=== PATIENT | male | born 1965 | race Caucasian/White ===

== ENCOUNTER 2021-05-24 11:59 | Outpatient (CLI) | payer MEDICARE, OTHER, SELFPAY ==
--- NOTE | 2021-05-24 | ECG_ITS ---
Measurements Intervals [place] Rate: 83 P: 60 MS: 149 QRS: 24 QRSD: 102 T: 55 QT: 377 QTc: 444 Interpretive Statements SINUS RHYTHM POSSIBLE LEFT ATRIAL ENLARGEMENT DELAYED PRECORDIAL R/S TRANSITION BASELINE ARTIFACT- I, II, AVR, AVL, AVF BORDERLINE ECG Electronically Signed On 05-24-2021 13:24:00 CDT by Nickolas Levy D.O.
[2021-05-24 12:53] LABS: Anion Gap 10 mmol/L (8-16); Blood Urea Nitrogen 25 mg/dL (9-20); Calcium 10.5 mg/dL (8.4-10.2); Carbon Dioxide 26 mmol/L (22-30); Chloride 102 mmol/L (98-107); Estimated Glomerular Filt Rate > 60; Glucose 75 mg/dL (65-110); Potassium 4.3 mmol/L (3.4-5.0); Sodium 138 mmol/L (137-145)
== END 2021-05-24 12:00 | disposition home or self-care (01) ==
DX: Z01.818 Encounter for other preprocedural examination (principal); I10 Essential (primary) hypertension
CPT/HCPCS: 36415; 80048; 93005

== ENCOUNTER 2022-12-18 08:08 | Outpatient (CLI) | payer MEDICARE, OTHER, SELFPAY ==
--- NOTE | 2023-01-14 10:50 | WPDSLEEPSTUD ---
Sleep Study Date of Study: 12/18/22 Ordering Provider: Kendal Villafana MD Interpreting Physician: Kendal Villafana MD Sleep Study Type: Split Polysomnogram Height: 1.88 m Weight: 113 kg Body Mass Index: 31.9 Neck Circumference (inches): 18 [place]: 8 Reason for Sleep Study Snoring, witnessed apneas. Sleep History Bay Olivier III is a 57-year-old male with history of multiple back surgeries with paraplegia who presents for a sleep study due to witnessed apneas and snoring. Patient states he was told by his surgeon that he has snoring during surgery. He never awakens from sleep short of breath. He frequently snores and snores loudly enough that others complain. He rarely has trouble sleeping when he has a cold. He does not suddenly wake up gasping for breath during the night. He does not have breathing problems at night. He rarely sweats excessively at night. He rarely falls asleep during the day. He does not fall asleep involuntarily and never falls asleep while driving. He does not experience loss of muscle tone with strong emotion. He never feels paralyzed on waking or falling asleep. He occasionally experiences vivid dreams upon waking or falling asleep. He does not feel afraid of going to sleep. He does not have nightmares. He occasionally recalls his dreams. He never has thoughts racing through his mind. He does not feel sad or depressed. He does not feel anxiety or worry about things. He occasionally notices parts of his body jerk or spasm. He rarely kicks during the night. He does not feel crawling or aching feelings in his legs. He occasionally feels leg pain at night. He occasionally grinds his teeth during sleep, wears a mouth guard and occasionally has morning jaw pain. He frequently feels bothered by pain during the day and is occasionally awakened by pain during the night. He frequently wakes up feeling stiff, sore and achy in the morning with pain in his neck, spine, or joints. Normal bedtime is around 11pm on the weekdays and same on the weekends, usually falling asleep in about 10 minutes although occasionally longer. He typically gets about 7.5 to 8.5 hours of sleep per night. His wake up time is around 7-7:30am on the weekdays and 7-8am on the weekends. He typically wakes up around 1 to 2 times per night and can be awake for 10 minutes during the first awakening, and if he wakes up twice then the second awakening tends to be longer. He reads or watches television before falling asleep. He occasionally takes naps in the afternoon or evening. Habits:? Never tobacco smoker. Drinks about 3 caffeinated beverages per day, in the morning. He drinks 2 to 3 beers per day and does not use recreational substances. [facility] Past Medical History Medical History (Updated 01/14/23 @ 10:59 by Kendal Villafana MD) Hypertension Surgical History Surgical History Fusion of spine, cervical region C3-C7 H/O spinal fusion T8-L5 History of discectomy L3-L4 History of laminectomy L3-L4 History of spinal fusion L2-L5 revision/implant failure History of spinal fusion T8-L5 Tear of meniscus of left knee Family History Family History (Updated 12/05/22 @ 14:44 by Kendal Villafana MD) Father Obstructive sleep apnea Son Diabetes mellitus Social History Social History Smoking status: Never smoker Tobacco type: cigars Second hand tobacco smoke exposure: No Medications Home Medications Medication Instructions Recorded Confirmed Type acetaminophen 325 mg capsule 325 mg PO TID PRN 12/05/22 History alfuzosin 10 mg tablet,extended 10 mg PO DAILY 12/05/22 History release 24 hr ascorbic acid (vitamin C) 500 mg mg PO DAILY 12/05/22 History capsule atorvastatin 40 mg tablet 40 mg PO DAILY 12/05/22 History baclofen 20 mg tablet 20 mg PO TID 12/05/22 History calcium carbonate 600 mg calcium 600 mg P
[2023-01-14 11:05] VITALS: BMI 31.9
== END 2022-12-19 06:46 | disposition home or self-care (01) ==
LOC: ANHCSM 08:09
PROVIDERS: Visit Provider Internal Medicine Critical Care Medicine
DX: G47.19 Other hypersomnia (principal); G47.33 Obstructive sleep apnea (adult) (pediatric)
CPT/HCPCS: 95811

== ENCOUNTER 2023-08-22 02:25 | Day surgery (SDC) | payer MEDICARE, OTHER, SELFPAY ==
[2023-07-24 14:51] VITALS: BMI 33.7
--- NOTE | 2023-08-20 12:31 | SUR.PREOP ---
Patient called regarding upcoming procedure. Went over preop instructions, appointment times, and procedure prep
[2023-08-22] MEDS: LACTATED RINGERS 1,000 ML 150 ML IV CONT (11:22)
[2023-08-22 11:25] VITALS: BP 165/94; PULSE 84; RESP 16; TEMP 36.1; O2SAT 97
--- NOTE | 2023-08-22 11:31 | PM.HPGS ---
History of Present Illness History of Present Illness Consent: Risks, benefits, and alternatives have been discussed and questions answered. Patient agrees to proceed with procedure. Chief complaint: hx colon polyps Narrative: aBy Olivier III is a 58 year old male here for screening colonoscopy, last one 10 years ago Review of Systems Constitutional: Constitutional: Denies headache(s) and Denies weakness Eyes: Eyes: Denies blurry vision ENT: Reports Normal hearing present, Denies headache(s) and Denies neck pain Cardiovascular: Cardiovascular: Denies chest pain and Denies dyspnea Respiratory: Respiratory: Denies dyspnea Gastrointestinal: Gastrointestinal: Reports no additional gastrointestinal complaints Genitourinary: Genitourinary: Denies dysuria Musculoskeletal: Musculoskeletal: Denies neck pain Integumentary/Breasts: Skin/Breast: Denies dry skin Neurologic: Reports Normal hearing present, Denies headache(s) and Denies weakness Psychiatric: Psychiatric: Denies anxiety Endocrine: Endocrine: Denies change in body appearance Hematologic/Lymphatic: Hematologic/Lymphatic: Denies easy bleeding Allergic/Immunologic: Allergic/Immunologic: Denies urticaria PMFSH Past Medical History Medical History (Updated 08/22/23 @ 11:32 by Kana Frye MD) Colon cancer screening Hypertension Surgical History Surgical History Fusion of spine, cervical region C3-C7 H/O spinal fusion T8-L5 History of discectomy L3-L4 History of laminectomy L3-L4 History of spinal fusion L2-L5 revision/implant failure History of spinal fusion T8-L5 Tear of meniscus of left knee Family History Family History Father Obstructive sleep apnea Son Diabetes mellitus Social History Social History (Updated 02/27/23 @ 14:10 by NISA Hernandez) Smoking status: Former smoker Tobacco type: cigars Second hand tobacco smoke exposure: No Alcohol intake: current Drinks per week: 18 Substance use: never Substance use type: does not use Living arrangements: with family Occupation/Education: retired Gender identity (if verbalized by the patient): Male Spiritual care concerns: No Meds Home Medications and Allergies Home Medications Medication Instructions Recorded Confirmed Type acetaminophen 325 mg capsule 325 mg PO TID PRN Pain 12/05/22 07/24/23 History alfuzosin 10 mg tablet,extended 10 mg PO DAILY 12/05/22 07/24/23 History release 24 hr atorvastatin 40 mg tablet 40 mg PO DAILY 12/05/22 07/24/23 History baclofen 20 mg tablet 20 mg PO TID 12/05/22 07/24/23 History calcium carbonate 600 mg calcium 600 mg PO DAILY 12/05/22 07/24/23 History (1,500 mg) tablet cholecalciferol (vitamin D3) 25 25 mcg PO DAILY 12/05/22 07/24/23 History mcg (1,000 unit) capsule colchicine 0.6 mg tablet (Colcrys) 0.6 mg PO TIDWMEAL 12/05/22 07/24/23 History fenofibrate 160 mg tablet 160 mg PO DAILY 12/05/22 07/24/23 History fluticasone propionate 50 1 spray intranasal DAILY 12/05/22 07/24/23 History mcg/actuation nasal spray,suspension (Flonase Allergy Relief) gabapentin 300 mg capsule 300 mg PO TID 12/05/22 07/24/23 History gabapentin 600 mg tablet 600 mg PO TID 12/05/22 07/24/23 History indomethacin 25 mg capsule 25 mg PO QID 12/05/22 07/24/23 History lisinopril 30 mg tablet 30 mg PO DAILY 12/05/22 07/24/23 History metoprolol succinate 50 mg 50 mg PO DAILY 12/05/22 08/22/23 History tablet,extended release 24 hr nabumetone 750 mg tablet 750 mg PO BID 12/05/22 07/24/23 History omeprazole 20 mg capsule,delayed 20 mg PO DAILY 12/05/22 07/24/23 History release tacrolimus 0.1 % topical solution 1 ml topical BID PRN Rash 12/05/22 08/22/23 History tramadol 50 mg tablet 50 mg PO Q4H PRN Pain 12/05/22 07/24/23 History venlafaxine 75 mg capsule,extended 75 mg PO DAILY 12/05/22 1
--- NOTE | 2023-08-22 11:43 | WPDANESEPPF ---
Anes - Initial Pre Proc Eval Procedure: Operation Date: 08/22/23 12:30 Proposed Procedures p Colonoscopy - Kana Frye MD Date/Time: 08/22/23 11:43 Surgeon: Kana Frye MD Pre Op Diagnosis: hx colon polyps Patient Data Age: 58 Gender: M Height: 1.85 m Weight: 119 kg Last Vital Signs Temp 97 F L 08/22/23 11:25 Pulse 84 08/22/23 11:25 Resp 16 08/22/23 11:25 BP 165/94 H 08/22/23 11:25 Pulse Ox 97 08/22/23 11:25 O2 Del Method Room Air 08/22/23 11:25 Allergies Allergy/AdvReac Type Severity Reaction Status Date / Time No Known Allergies Allergy Verified 08/22/23 11:22 Home Medications Medication Instructions Recorded Confirmed Type acetaminophen 325 mg capsule 325 mg PO TID PRN Pain 12/05/22 07/24/23 History alfuzosin 10 mg tablet,extended 10 mg PO DAILY 12/05/22 07/24/23 History release 24 hr atorvastatin 40 mg tablet 40 mg PO DAILY 12/05/22 07/24/23 History baclofen 20 mg tablet 20 mg PO TID 12/05/22 07/24/23 History calcium carbonate 600 mg calcium 600 mg PO DAILY 12/05/22 07/24/23 History (1,500 mg) tablet cholecalciferol (vitamin D3) 25 25 mcg PO DAILY 12/05/22 07/24/23 History mcg (1,000 unit) capsule colchicine 0.6 mg tablet (Colcrys) 0.6 mg PO TIDWMEAL 12/05/22 07/24/23 History fenofibrate 160 mg tablet 160 mg PO DAILY 12/05/22 07/24/23 History fluticasone propionate 50 1 spray intranasal DAILY 12/05/22 07/24/23 History mcg/actuation nasal spray,suspension (Flonase Allergy Relief) gabapentin 300 mg capsule 300 mg PO TID 12/05/22 07/24/23 History gabapentin 600 mg tablet 600 mg PO TID 12/05/22 07/24/23 History indomethacin 25 mg capsule 25 mg PO QID 12/05/22 07/24/23 History lisinopril 30 mg tablet 30 mg PO DAILY 12/05/22 07/24/23 History metoprolol succinate 50 mg 50 mg PO DAILY 12/05/22 08/22/23 History tablet,extended release 24 hr nabumetone 750 mg tablet 750 mg PO BID 12/05/22 07/24/23 History omeprazole 20 mg capsule,delayed 20 mg PO DAILY 12/05/22 07/24/23 History release tacrolimus 0.1 % topical solution 1 ml topical BID PRN Rash 12/05/22 08/22/23 History tramadol 50 mg tablet 50 mg PO Q4H PRN Pain 12/05/22 07/24/23 History venlafaxine 75 mg capsule,extended 75 mg PO DAILY 12/05/22 07/24/23 History release 24 hr CPAP supplies #1 ea 02/28/23 Rx Patient hx anesthesia problems: none Family hx anesthesia problems: none Results Review: All pre-operative results and documents have been reviewed as part of the pre-operative evaluation. [facility] Past Medical History Medical History (Updated 08/22/23 @ 11:32 by Kana Frye MD) Colon cancer screening Hypertension Surgical History Surgical History Fusion of spine, cervical region C3-C7 H/O spinal fusion T8-L5 History of discectomy L3-L4 History of laminectomy L3-L4 History of spinal fusion L2-L5 revision/implant failure History of spinal fusion T8-L5 Tear of meniscus of left knee Family History Family History Father Obstructive sleep apnea Son Diabetes mellitus Social History Social History (Updated 02/27/23 @ 14:10 by NISA Hernandez) Smoking status: Former smoker Tobacco type: cigars Second hand tobacco smoke exposure: No Alcohol intake: current Drinks per week: 18 Substance use: never Substance use type: does not use Living arrangements: with family Occupation/Education: retired Gender identity (if verbalized by the patient): Male Spiritual care concerns: No Anes - Eval Final PreProcedure Day of Procedure 08/22/23 11:43 Patient weight: obese Heart: regular rate and rhythm Lungs: clear to auscultation Airway: Mallampati scale class II Neurological: alert and oriented Last oral intake: >/= 8 hours ASA classification: III Emergent: no Anesthetic plan: proceed Anesthe
[2023-08-22 12:18] VITALS: BP 120/82; PULSE 75; RESP 23; O2SAT 97
[2023-08-22 12:28] VITALS: BP 136/87; PULSE 73; RESP 20; O2SAT 97
[2023-08-22 12:38] VITALS: BP 140/94; PULSE 75; RESP 22; O2SAT 98
== END 2023-08-22 12:53 | disposition home or self-care (01) ==
PROVIDERS: Visit Provider Internal Medicine Gastroenterology
PROC: 0DJD8ZZ Inspection of Lower Intestinal Tract, Via Natural or Artificial Opening Endoscopic (ICD-10-PCS; CPT 45378; principal; 2023-08-22 12:30)
DX: Z12.11 Encounter for screening for malignant neoplasm of colon (principal); K63.5 Polyp of colon; I10 Essential (primary) hypertension; Z98.1 Arthrodesis status; Z87.891 Personal history of nicotine dependence; E66.9 Obesity, unspecified; Z68.34 Body mass index [BMI] 34.0-34.9, adult
CPT/HCPCS: 45385; 88305; J2001; J2704; J7120

== ENCOUNTER 2024-07-27 07:50 | Outpatient (CLI) | payer MEDICARE, OTHER, SELFPAY ==
--- NOTE | ~2024-07-27 | MR_ITS ---
EXAMINATION: MR shoulder RT wo con DATE: 07/27/2024 08:36 INDICATION: Right shoulder pain TECHNIQUE: Magnetic resonance imaging (MRI) of the right shoulder was performed without intravenous c ontrast. Sequences included axial PD-weighted FS FSE, coronal oblique PD-weighted FS FSE, coronal obl ique T2-weighted FS FSE, sagittal PD-weighted FS FSE, and sagittal T1-weighted SE. COMPARISON: None. FINDINGS: Coracoacromial arch: The acromion undersurface is curved in morphology (type II). Small anterior subacromial spur at the a cromial insertion of the normal coracoacromial ligament. Severe acromioclavicular osteoarthritis with small inferiorly directed osteophytes at the lateral clavicle. Rotator cuff: Moderate subscapularis tendinopathy without tear. The teres minor tendon is normal. There is severe t endinopathy of the intervening supraspinatus and infraspinatus tendons. There is attenuation of the s upraspinatus and anterior half of the infraspinatus tendons resulting from partial thickness articula r sided tear occurring along the critical zone approximately 1 cm from the footplate. The frayed medi al sided tear margin is retracted approximately 3 cm to midway between the level of the apex of the h umeral head and the glenoid. There is additional small partial thickness bursal sided tear of the sup raspinatus tendon overlying the apex of the humeral head. No full-thickness tear defect appreciated a lthough the tendon between the articular and bursal sided tear as appears frayed and cannot exclude t iny full-thickness perforations. Mild fatty atrophy of the supraspinatus and infraspinatus muscle bel lies. There is also fairly muscular edema in both muscle bellies more prominent at the infraspinatus muscle belly. Biceps tendon, glenoid labrum and glenohumeral cartilage: Long head of the biceps tendon is normal. Diffuse degenerative tearing of all but the posterior infer ior labrum. There are marginal osteophytes extending to the base of the thickened and globular appear ing anteroinferior labrum. There are some adjacent chondral swelling and fissuring at the anteroinfe rior glenoid. There is partial thickness cartilage loss with smooth chondral surface along the cephal ad third of the glenoid. Cartilage along the humeral head appears relatively preserved with smooth ch ondral surface Fluid: Small glenohumeral joint effusion with mild synovitis at the axillary recess. No loose osteochondral bodies. Small amount of fluid consistent with arthritis in the subacromial/subdeltoid bursa consisten t with moderate bursitis. Bones: Normal marrow signal with no edema, fracture or abnormal marrow replacing process. IMPRESSION: 1. Mild glenohumeral osteoarthritis with diffuse degenerative tearing of the glenoid labrum sparing t he posterior inferior labrum. 2. Severe acromioclavicular osteoarthritis. 3. Severe supraspinatus and infraspinatus tendinopathy with partial-thickness articular sided tear al lori the critical zone of the entire supraspinatus and anterior half of the infraspinatus tendon and s mall partial-thickness articular sided tear of the supraspinatus tendon overlying the apex of the hum eral head. 4. Moderate subacromial/subdeltoid bursitis. Reviewed, dictated and finalized at location B. DERMATOLOGY IMPRESSION: 1. Mild glenohumeral osteoarthritis with diffuse degenerative tearing of the gl enoid labrum sparing the posterior inferior labrum. 2. Severe acromioclavicular osteoarthritis. 3. Severe supraspinatus and infraspinatus tendinopathy with partial-thickness a rticular sided tear along the critical zone of the entire supraspinatus and ant erior half of the infraspinatus tendon and small partial-thickness articular si ded tear of the supraspinatus tendon overlying the apex of the humeral head. 4. Moderate subacromial/subdeltoid bursitis.
== END 2024-07-27 07:51 | disposition home or self-care (01) ==
PROVIDERS: PCP Family Medicine Sports Medicine; Visit Provider Family Medicine Sports Medicine
DX: M24.811 Other specific joint derangements of right shoulder, not elsewhere classified (principal); M19.011 Primary osteoarthritis, right shoulder; M67.813 Other specified disorders of tendon, right shoulder; M75.111 Incomplete rotator cuff tear or rupture of right shoulder, not specified as traumatic; M75.51 Bursitis of right shoulder
CPT/HCPCS: 73221